=== PATIENT | female | born 1955 | race Caucasian/White ===

== ENCOUNTER 2017-10-16 11:18 | Emergency (ER) | payer MEDICAID, OTHER ==
[~2017-10-16] VITALS: Ht 162.6 cm; Wt 77.1 kg
[2017-10-16] MEDS ORDERED: KETOROLAC TROMETH 60MG/2ML VIAL IM ONE (17:15)
[2017-10-16] MEDS ORDERED: HYDROcodone-ACET 10/325MG TAB PO ONE (17:15)
[2017-10-16] MEDS ORDERED: cloNIDine HCL 0.1 MG TAB PO ONE (17:15)
[2017-10-16 18:56] VITALS: BP 169/108
== END 2017-10-16 19:18 | disposition home or self-care (01) ==
LOC: ER 11:18
DX: M75.81 Other shoulder lesions, right shoulder (principal); I10 Essential (primary) hypertension; Z88.5 Allergy status to narcotic agent; Z88.8 Allergy status to other drugs, medicaments and biological substances
CPT/HCPCS: 73030; 73060; 96372; 99284; J1885; 93005

== ENCOUNTER 2017-10-19 15:36 | Emergency (ER) | payer MEDICAID, OTHER ==
[~2017-10-19] VITALS: Ht 162.6 cm; Wt 74.8 kg
[2017-10-19 15:56] VITALS: BP 204/128
== END 2017-10-19 22:55 | disposition left against medical advice (07) ==
LOC: ER 15:45
DX: M79.601 Pain in right arm (principal); R20.0 Anesthesia of skin; Z53.21 Procedure and treatment not carried out due to patient leaving prior to being seen by health care provider

== ENCOUNTER 2017-10-20 08:38 | Emergency (ER) | payer MEDICAID ==
[~2017-10-20] VITALS: Ht 162.6 cm; Wt 74.8 kg
[2017-10-20 08:40] VITALS: BP 167/111
[2017-10-20] MEDS ORDERED: MEPERIDINE HCL (50 MG/ML) 1 ML VIAL IM ONE (09:30)
[2017-10-20] MEDS ORDERED: PROMETHAZINE HCL 25 MG/ML 1ML IM ONE (09:30)
== END 2017-10-20 10:29 | disposition home or self-care (01) ==
LOC: ER 08:38
DX: M50.31 Other cervical disc degeneration, high cervical region (principal); M54.12 Radiculopathy, cervical region; I10 Essential (primary) hypertension; Z88.5 Allergy status to narcotic agent; Z88.8 Allergy status to other drugs, medicaments and biological substances
CPT/HCPCS: 72040; 96372; 99284; J2175; J2550

== ENCOUNTER 2017-10-22 13:22 | Emergency (ER) | payer MEDICAID ==
[~2017-10-22] VITALS: Ht 162.6 cm; Wt 77.1 kg
[2017-10-22] MEDS ORDERED: METOCLOPRAMIDE HCL 5MG/ml INJ 2ml VIAL IV ONE (16:15)
[2017-10-22] MEDS ORDERED: KETOROLAC TROMETH 30 MG/ML 1ML VIAL IV ONE (16:15)
[2017-10-22 16:41] LABS: Basophils # (auto) 0.1 uL; Eosinophils # (auto) 0.1 uL; Eosinophils % (auto) 1.3 % (0.0-7.0); Hemoglobin 15.3 g/dL (12.2-16.2); Lymphocytes # (auto) 1.2 uL; Lymphocytes % (auto) 21.1 % (10.0-50.0); Mean Corpuscular Hemoglobin 30.6 pg (28.0-32.0); Mean Corpuscular Hgb Conc. 34.1 g/dL (32.0-36.0); Mean Corpuscular Volume 89.8 fL (80.0-100.0); Monocytes # (auto) 0.5 uL; Monocytes % (auto) 8.1 % (0.0-12.0); Neutrophils # (auto) 3.8 uL; Neutrophils % (auto) 68.5 % (37.0-80.0); Nucleated Red Blood Cells % 0.1 %; Platelet Count (auto) 250 10^3/uL (140-450); Red Blood Cells 5.01 10^6/uL (4.0-5.20); Red Cell Distribution Width 12.9 % (11.8-14.3); White Blood Cell 5.5 10^3/uL (4.4-10.8)
[2017-10-22 16:58] LABS: Albumin 3.4 g/dL (3.4-5.0); BUN/Creatinine Ratio 12.9; Calcium 8.1 mg/dL (8.5-10.1); Magnesium 2.2 mg/dL (1.6-2.6); Potassium 4.3 mmol/L (3.5-5.1)
[2017-10-22 17:01] VITALS: BP 171/122
[2017-10-22 17:01] LABS: Bilirubin, Total 0.4 mg/dL (0.2-1.0); Total Protein 6.8 g/dL (6.4-8.2)
[2017-10-22] MEDS ORDERED: DEXAMETHASONE SOD PHOS 4 MG/1ML SDV INJ IV ONE (17:45)
== END 2017-10-22 18:11 | disposition home or self-care (01) ==
LOC: EDBD 13:22 → ER 13:25
DX: M54.12 Radiculopathy, cervical region (principal); M47.892 Other spondylosis, cervical region; I10 Essential (primary) hypertension; F17.210 Nicotine dependence, cigarettes, uncomplicated; Z88.6 Allergy status to analgesic agent; Z88.8 Allergy status to other drugs, medicaments and biological substances
CPT/HCPCS: 36415; 71046; 72125; 80053; 83735; 84443; 85025; 93005; 96374; 96375; 99285; J1100; J1885; J2765